=== PATIENT | female | born 1970 | race Caucasian/White ===

== ENCOUNTER → 2021-12-07 | Outpatient (CLI) | payer OTHER ==
[~2021-12-07] MED LIST: CATHETER FLUSH 10 ML SYR IV PRN; CATHETER FLUSH 10 ML SYR IVP PRN; GADOTERATE 0.5 MMOL/ML (CLARISCAN) 20 ML VIAL IV ONE; HOLD METFORMIN - RECEIVED CONTRAST 20 ML VIAL IV SCH; IOHEXOL 350 MG/ML 100 ML (OMNIPAQUE 350) VIAL IV ONE
--- NOTE | 2021-12-07 11:50 | Diagnostic Imaging Report ---
PROCEDURE: CT chest, abdomen, and pelvis with contrast. TECHNIQUE: Multiple contiguous axial images were obtained through the chest, abdomen, and pelvis after the administration of intravenous contrast. Auto Exposure Controls were utilized during the CT exam to meet ALARA standards for radiation dose reduction. INDICATION: Breast carcinoma. No prior studies are available for comparison. CT CHEST: Bilateral breast reconstruction with implants are noted. There are surgical clips in the axillae bilaterally. No definite axillary lymphadenopathy is detected. No definite supraclavicular or internal mammary lymphadenopathy is detected. No mediastinal or hilar lymphadenopathy is detected. No pericardial or pleural fluid is identified. No pulmonary nodules, infiltrates or masses are detected. CT abdomen and pelvis: There is generalized low attenuation throughout the liver consistent with hepatic steatosis. No discrete liver mass is identified. There does appear to be pneumobilia present, perhaps owing to an incompetent sphincter. The gallbladder surgically absent. The pancreas and spleen are unremarkable. No adrenal mass is identified. Kidneys are unremarkable. Aorta is nonaneurysmal. No central retroperitoneal or mesenteric lymphadenopathy is detected. The bowel loops are normal caliber. There is diverticulosis of the descending and sigmoid colon but no evidence of acute diverticulitis. There is no free fluid or fluid collection identified. The uterus and bladder are unremarkable. No definite pelvic lymphadenopathy is seen. Bony structures are unremarkable. IMPRESSION: 1. No evidence of thoracic lymphadenopathy or pulmonary metastatic disease. 2. No evidence of abdominal or pelvic lymphadenopathy or metastatic disease. 3. Hepatic steatosis. Dictated by: Dictated on workstation # [id number]
--- NOTE | 2021-12-07 14:59 | Diagnostic Imaging Report ---
PROCEDURE: MR imaging of the brain with and without contrast. TECHNIQUE: Multiplanar, multisequence MR imaging of the brain was performed with and without contrast. INDICATION: History of breast cancer. Headaches and dizziness. Evaluate for metastatic disease. COMPARISON: none FINDINGS: There is diffuse pachymeningeal enhancement. No masslike enhancement is seen in the brain. No acute ischemia, mass, or hemorrhage. The ventricles, cortical sulci, and basilar cisterns are symmetric and unremarkable. The sellar and suprasellar regions have a normal appearance. The brainstem and posterior fossa are unremarkable. The paranasal sinuses and mastoid air cells demonstrate normal signal characteristics. The globes and orbits are symmetric and unremarkable. The scalp and calvarium have a normal appearance. IMPRESSION: 1. Diffuse pachymeningeal enhancement. This can be seen with metastatic disease. Intracranial hypotension following lumbar puncture can also have this appearance in the appropriate clinical scenario. Other etiologies such as neurosarcoid can also have this appearance. Recommend correlation with patient history and continued close followup. 2. No acute ischemia, mass, or hemorrhage. Dictated by: Dictated on workstation # [id number]
--- NOTE | 2021-12-07 17:54 | Diagnostic Imaging Report ---
Indication: Bilateral breast cancer. Technique: Patient received 26.8 mCi technetium 99 MDP and whole body planar imaging was performed. Study is correlated with a CT chest, abdomen and pelvis of the same date. There is normal soft tissue uptake and excretion by urinary tracts. There is no suspicious accumulation in the axial or appendicular skeleton. There were no findings to suggest scintigraphic evidence for bony metastasis. Impression: Negative Dictated by: Dictated on workstation # [id number]
== END ==
LOC: CARD 10:41
PROVIDERS: ATTEND Internal Medicine Hematology & Oncology
DX: K76.0 Fatty (change of) liver, not elsewhere classified (principal); G97.8 Other intraoperative and postprocedural complications and disorders of nervous system
CPT/HCPCS: 70553; 71260; 74177; 78306; A9503

== ENCOUNTER 2021-12-13 09:14 | Outpatient (RCR) | payer OTHER ==
[2021-11-29 11:41] LABS: BASOPHILS # (AUTO) 0.1 10^3/uL (0.0-0.1); BASOPHILS % (AUTO) 1 % (0-10); EOSINOPHILS # (AUTO) 0.5 10^3/uL (0.0-0.3); EOSINOPHILS % (AUTO) 7 % (0-10); HEMATOCRIT 42 % (35-52); HEMOGLOBIN 14.4 g/dL (11.5-16.0); LYMPHOCYTES # (AUTO) 2.2 10^3/uL (1.0-4.0); LYMPHOCYTES % (AUTO) 33 % (12-44); MEAN CORPUSCULAR HEMOGLOBIN 31 pg (25-34); MEAN CORPUSCULAR HGB CONC 34 g/dL (32-36); MEAN CORPUSCULAR VOLUME 91 fL (80-99); MEAN PLATELET VOLUME 10.4 fL (9.0-12.2); MONOCYTES # (AUTO) 0.3 10^3/uL (0.0-1.0); MONOCYTES % (AUTO) 5 % (0-12); NEUTROPHILS # (AUTO) 3.6 10^3/uL (1.8-7.8); NEUTROPHILS % (AUTO) 54 % (42-75); PLATELET COUNT 197 10^3/uL (130-400); WHITE BLOOD COUNT 6.7 10^3/uL (4.3-11.0)
[2021-11-29 12:00] LABS: ALBUMIN 4.4 GM/DL (3.2-4.5); BILIRUBIN,TOTAL 0.6 MG/DL (0.1-1.0); CALCIUM 9.5 MG/DL (8.5-10.1); CREATININE SERUM 0.88 MG/DL (0.60-1.30); POTASSIUM 4.3 MMOL/L (3.6-5.0)
== END 2021-12-19 | disposition home or self-care (01) ==
LOC: ONC 09:14
PROVIDERS: ATTEND Internal Medicine Hematology & Oncology
DX: C50.919 Malignant neoplasm of unspecified site of unspecified female breast (principal)
CPT/HCPCS: 80053; 85025; 86300; G0463; 36415; 99204

== ENCOUNTER → 2021-12-22 | Outpatient (CLI) | payer OTHER ==
[~2021-12-22] MED LIST changes: -CATHETER FLUSH 10 ML SYR IV PRN; -CATHETER FLUSH 10 ML SYR IVP PRN; +GADOTERATE 0.5 MMOL/ML (CLARISCAN) 15 ML VIAL IV ONE; -GADOTERATE 0.5 MMOL/ML (CLARISCAN) 20 ML VIAL IV ONE; -HOLD METFORMIN - RECEIVED CONTRAST 20 ML VIAL IV SCH; -IOHEXOL 350 MG/ML 100 ML (OMNIPAQUE 350) VIAL IV ONE
[2021-12-22 15:09] LABS: PROTHROMBIN TIME PATIENT 13.9 SEC (12.2-14.7)
--- NOTE | 2021-12-22 18:16 | Diagnostic Imaging Report ---
CLINICAL INDICATION: Patient has history of breast cancer times couple of years ago. Patient is having total spine pain. EXAM: MRI of the cervical spine performed without and with 12 mL of Clariscan IV contrast. Multiplanar, multisequence imaging was obtained. COMPARISONS: None. FINDINGS: There is no abnormal IV contrast enhancement. There is no acute cervical spine fracture or dislocation. There is straightening of the cervical spine posture. There are no significant Modic degenerative signal changes. There are hypertrophic spurs involving the mid to lower cervical spine. Limited visualization of the posterior fossa is unremarkable. There is an area of localized cord deformity involving the anterior aspect of the cervical cord seen at the C5-C6 level. There appears to be a small area of intramedullary cord signal involving the right side of the cord at the C5-C6 level. C1-C2: There are degenerative spurs involving the atlanto-odontoid interval. C2-C3: There is moderate left facet arthropathy and mild right facet arthropathy. There is no significant central canal narrowing. There is no significant neural foramen narrowing. C3-C4: There is a small central posterior disc herniation. There is mild central canal stenosis. There is no significant neural foramen narrowing. C4-C5: There is a diffuse disc bulge with superimposed posterior disc herniation. There is moderate central canal stenosis. There is no significant neural foramen narrowing. C5-C6: There is a diffuse disc bulge with moderate loss of disc space height. There are broad posterior disc spurs and bilateral uncinate spurs. There is [id number] central canal stenosis with deformity of the cervical cord. There is severe left neural foramen narrowing and moderate right neural foramen narrowing. C6-C7: There is a mild diffuse disc bulge with moderate central canal narrowing. There is moderate left neural foramen narrowing and no significant right neural foramen narrowing. C7-T1: There is no significant central spinal canal or neural foramen narrowing. IMPRESSION: 1: There is multilevel cervical spine degenerative disease with diffuse disc bulges, disc herniations, and facet arthropathy. This is described in detail above. 2: There is localized deformity of the cervical cord at the C5-C6 level with possible increased signal involving the right side of the cord. This appearance is due to disc herniation. Dictated by: Dictated on workstation # [id number]
--- NOTE | 2021-12-22 18:19 | Diagnostic Imaging Report ---
CLINICAL INDICATION: Patient has history of breast cancer times a couple of years ago. Patient is having total spine pain. EXAM: MRI of the thoracic spine performed without and with 12 mL of Clariscan IV contrast. Multisequence, multiplanar imaging is obtained. COMPARISON: None. FINDINGS: There is no acute thoracic spine fracture or dislocation. There are minimal Modic type II degenerative signal changes anteriorly involving the mid to lower thoracic spine. There is no significant disc bulge or herniation. There is no significant central canal or neural foramen narrowing. There are degenerative spurs involving the thoracic spine and multilevel facet arthropathy. There are multiple perineural cysts involving the bilateral neural foraminal regions with the largest one measuring 1.4 cm on the right at the T10-T11 level. There is no significant paraspinal soft tissue abnormality. IMPRESSION: 1: There is degenerative disease of the thoracic spine, but no significant central canal or neural foramen narrowing. 2: There is no evidence of metastatic disease. Dictated by: Dictated on workstation # [id number]
--- NOTE | 2021-12-22 20:36 | Diagnostic Imaging Report ---
PROCEDURE: MRI lumbar spine with and without contrast. TECHNIQUE: Multiplanar, multisequence MRI of the lumbar spine was performed with and without contrast. DATE: December 22, 2021. COMPARISON: CT chest, abdomen and pelvis December 07, 2021. INDICATION: 51-year-old female, history of breast cancer. Pain of the spine. Evaluation for bone metastasis. FINDINGS: The alignment of the lumbar spine is unremarkable. There is no evidence of a diffuse marrow infiltrating or replacing process. There is no identified compression deformity or other fracture. There is no identified bone lesion concerning for a bone metastasis. The visualized cord and conus medullaris is unremarkable and terminates at the L2 level. The disc heights are well preserved. There are T2 hyperintense nonenhancing lesions at the level of the right neural foramen at the levels of L1-L2, T12-L1, T11-T12 and T10-T11. The largest is at the level of T11-T12 and measures 15 mm in size. These are compatible with perineural cysts. There is also a left-sided perineural cyst at T11-T12. There is a Tarlov cyst at the level of S3 which measures approximately 12 mm in size. L1-L2: There is no disc bulge. The facet joints and ligamentum flavum are unremarkable. There is no foraminal narrowing. There is no spinal canal stenosis. L2-L3: There is no disc bulge. The facet joints and ligamentum flavum are unremarkable. There is no foraminal narrowing. There is no spinal canal stenosis. L3-L4: There is no disc bulge. The facet joints and ligamentum flavum are unremarkable. There is no foraminal narrowing. There is no spinal canal stenosis. L4-L5: There is an annular tear. There is very mild diffuse disc bulge. The facet joints and ligamentum flavum are unremarkable. There is mild bilateral foraminal narrowing. There is no spinal canal stenosis. L5-S1: There is no disc bulge. There are moderate to severe bilateral facet degenerative changes without ligamentum flavum hypertrophy. There is no foraminal narrowing. There is no spinal canal stenosis. IMPRESSION: 1. No identified metastatic lesion at the level of the lumbar spine. 2. Degenerative changes of the lumbar spine, as described level by level above. 3. Perineural cysts, as above, and additional Tarlov cyst. Dictated by: Dictated on workstation # [id number]
== END ==
LOC: RAD 12:02
PROVIDERS: ATTEND Internal Medicine Hematology & Oncology
DX: C79.81 Secondary malignant neoplasm of breast (principal); C80.1 Malignant (primary) neoplasm, unspecified; M47.816 Spondylosis without myelopathy or radiculopathy, lumbar region; M89.9 Disorder of bone, unspecified; G96.191 Perineural cyst; M51.36 Other intervertebral disc degeneration, lumbar region; M51.26 Other intervertebral disc displacement, lumbar region; M48.061 Spinal stenosis, lumbar region without neurogenic claudication; M47.817 Spondylosis without myelopathy or radiculopathy, lumbosacral region
CPT/HCPCS: 36415; 72156; 72157; 72158; 85610; 85730

== ENCOUNTER 2021-12-27 11:33 | Day surgery (SDC) | payer OTHER ==
[2021-12-27 12:42] VITALS: BP 136/76
[2021-12-27 12:45] LABS: HEMATOCRIT 41 % (35-52); HEMOGLOBIN 14.3 g/dL (11.5-16.0); MEAN CORPUSCULAR HEMOGLOBIN 31 pg (25-34); MEAN CORPUSCULAR HGB CONC 35 g/dL (32-36); MEAN CORPUSCULAR VOLUME 89 fL (80-99); MEAN PLATELET VOLUME 10.7 fL (9.0-12.2); PLATELET COUNT 148 10^3/uL (130-400); WHITE BLOOD COUNT 6.4 10^3/uL (4.3-11.0)
--- NOTE | 2021-12-27 13:30 | Anesthesia-Procedure Note ---
Procedures/Interventions Procedure Start/Stop/Diagnosis Date of Procedure: Dec 27, 2021 Start Time: 12:45 Stop Time: 13:15 Lumbar Puncture Discussed Risk,Benefits: Yes Patient Consents: Yes Position: Lying, Left Sterile Technique: Yes Opening Pressure: 14 Fluid Color: clear Spinal Needle Used: 22g Mir 3 1/2 inch ASHWIN NI CRNA Dec 27, 2021 13:30
[2021-12-27 13:47] LABS: RED BLOOD CELL,CSF 0.001 10^6/uL (0-0); WHITE BLOOD CELL,CSF 0.002 10^3/uL (0-0.005)
[2021-12-27 13:48] LABS: APPEARANCE,CSF CLEAR; COLOR,CSF COLORLESS
[2021-12-27 13:49] LABS: CSF TUBE NUMBER 4
[2021-12-27 14:09] LABS: CSF GLUCOSE 133 MG/DL (50-80)
[2021-12-27 14:15] LABS: CSF TOTAL PROTEIN 32 MG/DL (15-40)
== END 2021-12-27 14:15 | disposition home or self-care (01) ==
LOC: SDC 11:33
PROVIDERS: ATTEND Internal Medicine Hematology & Oncology
DX: C79.81 Secondary malignant neoplasm of breast (principal)
CPT/HCPCS: 36415; 82945; 84157; 85027; 89051

== ENCOUNTER 2022-03-01 08:32 | Outpatient (RCR) | payer OTHER | END 2022-03-21 | disposition home or self-care (01) | LOC: ONC 08:32 | PROVIDERS: ATTEND Internal Medicine Hematology & Oncology | DX: N63.12 Unspecified lump in the right breast, upper inner quadrant (principal) | CPT/HCPCS: 88112; 99213 ==

== ENCOUNTER → 2022-03-03 | Outpatient (CLI) | payer OTHER ==
--- NOTE | 2022-03-03 17:16 | Diagnostic Imaging Report ---
INDICATION: Palpable lump right breast. Correlation is made with prior mammogram 09/22/2015. 2-D and 3-D bilateral diagnostic mammography was performed. Patient has had bilateral mastectomies with breast reconstruction. There are implants bilaterally. Contours are smooth. BB markers placed at the area of palpable abnormality in the medial right breast. No definite underlying abnormality is seen. There are surgical clips in axilla bilaterally. No suspicious consultations are seen. IMPRESSION: No mammographic features suspicious for malignancy are identified. Patient has had outside ultrasound already of the palpable abnormality. Patient is scheduled to undergo bilateral breast MRI. ACR BI-RADS Category 0: Incomplete. (Needs additional imaging evaluation). Result letter will be mailed to the patient. Note: At least 10% of breast cancer is not imaged by mammography. BI-RADS Category 0 Dictated by: Dictated on workstation # [id number]
== END ==
LOC: RAD 14:15
PROVIDERS: ATTEND Internal Medicine Hematology & Oncology
DX: N63.10 Unspecified lump in the right breast, unspecified quadrant (principal)
CPT/HCPCS: 77066; G0279; 77062

== ENCOUNTER 2022-12-06 13:40 | Outpatient (RCR) | payer BC, MEDICARE | END 2022-12-19 | disposition home or self-care (01) | LOC: ONC 13:40 | PROVIDERS: ATTEND Internal Medicine Hematology & Oncology | DX: N63.10 Unspecified lump in the right breast, unspecified quadrant (principal) ==